=== PATIENT | female | born 1965 | race Caucasian/White ===

== ENCOUNTER 2016-10-10 11:07 | Emergency (ER) | payer BC ==
[2016-10-10] MEDS ORDERED: LIDOCAINE HCL 2% JELLY 1 APP/5 ML TUBE ONE (11:31)
--- NOTE | 2016-10-10 12:04 | CT REPORT ---
HISTORY: Status post fall with loss of consciousness COMPARISON: None. TECHNIQUE: Axial non-contrast images obtained from skull vertex through foramen magnum. Dose reduction technique was utilized. FINDINGS: There is a high parietal scalp contusion. There is no underlying calvarial fracture. Skull base appea rs normal. No large hematoma of the scalp seen. No intracranial hemorrhage, pathologic extra-axial fluid collection, midline shift or hydrocephalus s een. IMPRESSION: 1. No evidence of an acute cranial process. 2. High parietal scalp contusion without subjacent calvarial fracture. Final Electronic Signature: This report was electronically signed by Lai Riggins MD on 10/10/2016 12:02 PM. raquel /
[2016-10-10] MEDS ORDERED: ONDANSETRON ODT 8 MG TAB.RAPDIS PO ONE (13:39)
--- NOTE | 2016-10-10 14:47 | ER NURSING DOCUMENTATION ---
Nurse's Notes [facility] ([place], [place]) Name:Chayo Gonzalez Age:51 yrs Sex:Female :1965 Arrival Date:10/10/2016 Time:11:07 BedTrauma-A Private MD:No PCP, Identified Diagnosis:Head Contusion, Unspecified Part of Head;Abrasion;Back Contusion Presentation: 10/10 11:13 Acuity: MARGARET 2 lc 11:20 Mechanism of Injury: Horse accident. 11:24 Presenting complaint: Patient states: PT was horseback riding and her cell phone went rh off resulting in the horse kicked her off. PT had a witnessed LOC by who reports that she was knocked out for "about 30 seconds". Pt c/o headache, dizziness and has abrasions on her tailbone, left payton/calf and her nose. Transition of care: Other [facility]. Mechanism of Injury: The problem was sustained at [facility], resulted from BUCKED OFF A HORSE. 11:24 Method Of Arrival: Private Vehicle Triage Assessment: 11:27 General: Appears in no apparent distress, Behavior is cooperative. Pain: Complains of rh pain in face, left parietal area, right parietal area, coccyx, left calf, left payton and nose. EENT: Oral mucosa is moist. Neuro: Level of Consciousness is awake, alert, obeys commands, Oriented to person, place, time, event, Reports dizziness, headache. Cardiovascular: Capillary refill < 3 seconds Chest pain is denied. Respiratory: Airway is patent Respiratory effort is even, unlabored, Respiratory pattern is regular, symmetrical, Breath sounds are clear bilaterally. Denies shortness of breath. GI: Abdomen is non- distended Abd is soft and non tender X 4 quads. Denies diarrhea, nausea, vomiting. : No deficits noted. Derm: Skin is intact, is healthy with good turgor, Skin is pink, warm & dry. Reports. Musculoskeletal: Circulation, motion, and sensation intact Range of motion intact in all extremities. Injury Description: Abrasion sustained to thoracic area, coccyx, left calf, left payton and nose is dirty, was sustained 30-60 minutes ago. Historical: - Allergies: No known drug Allergies; - Home Meds: 1. fiber - PMHx: Asthma; Seasonal Allergies; - PSHx: ; - Tetanus: < 10 years. - Ebola Screening: : Patient negative for fever greater than or equal to 101.5 degrees Fahrenheit, and additional compatible Ebola Virus Disease symptoms. - Immunization history: Flu Vaccine < 1 year. - Social history: Smoking status: Patient states was never smoker of tobacco. Screenin:30 Infectious Disease Risk None. Abuse screen: Denies threats or abuse. Denies injuries rh from another. Nutritional screening: No deficits noted. Vital Signs: 11:10 BP 131 / 78 (auto/); lc 11:12 Pulse 89 MON; Resp 26; Pulse Ox 94% ; lc 11:12 Temp 97.6; Weight 74.39 kg; Height 5 ft. 5 in. (165.10 cm); Pain 6/10; lc 12:00 BP 134 / 85; Pulse 65; Resp 17; Pulse Ox 95% on R/A; Pain 4/10; rh 13:00 BP 118 / 59; Pulse 56; Resp 17; Pulse Ox 93% on R/A; rh 14:46 BP 142 / 71; Pulse 59; Resp 15; Pulse Ox 95% on R/A; Pain 4/10; rh 11:12 Body Mass Index 27.29 (74.39 kg, 165.10 cm) lc [place] Coma Score: 11:24 Eye Response: spontaneous(4). Verbal Response: oriented(5). Motor Response: obeys rh commands(6). Total: 15. Trauma Score (Adult): 11:30 Eye Response: spontaneous(1); Verbal Response: oriented(1); Motor Response: obeys rh commands(2); Systolic BP: > 89 mm Hg(4); Respiratory Rate: 10 to 29 per min(4); [place] Score: 15; Trauma Score: 12 11:50 Eye Response: spontaneous(1); Verbal Response: oriented(1); Motor Response: obeys rh commands(2); Systolic BP: > 89 mm Hg(4); Respiratory Rate: 10 to 29 per min(4); Rosa Isela Score: 15; Trauma Score: 12 12:20 Eye Response: spontaneous(1); Verbal Response: oriented(1); Motor Response: obeys rh commands(2); Systolic BP: > 89 mm Hg(4); Respiratory Rate: 10 to 29 per min(4); Rosa Isela Score: 15; Trauma Score: 12 13:00 Eye Response: spontaneous(1); Verbal Response: oriented(1); Motor Response: obeys commands(2); Systolic BP: > 89 mm Hg(4); Respiratory Rate: 10 to 29 per min(4); [place] Score: 15; Trauma Score: 12 ED Course: 11:08 Patient arrived in ED. ds 11:09 No PCP, Identified is Private Physician. ds 11:13 Mary Lou Sanz, RN is Primary Nurse. 11:13 Triage completed. 11:15 Notified ED Physician of patient's arrival and chief complaint. Dr. Samano notified. rh 11:20 Blas Samano MD is Attending Physician. 11:30 Valuables Remains with patient Patient has correct armband on for positive rh identification. Placed in gown. Bed in low position. Call light in reach. Side rails up X2. hospital monitor on. Pulse ox on. NIBP on. Warm blanket given. Pillow given. Family accompanied patient. 11:[address] dnn 12:00 Wound care to abrasion, located on back and thoracic area and nose and left leg and rh buttocks and left payton and left calf and coccyx was cleaned with soap and water, Irrigation Normal Saline dressed with bacitracin Kerlix, ABD pads, band aid, Patient tolerated well. 13:53 Diet: Patient given snack. Patient given water. Tolerated well. Assisted to bedside rh commode. 13:53 Road Test. rh Administered Medications: 01:30 Drug: Zofran 8 mg; Route: PO; lpr 13:53 Follow up: Response: Nausea is decreased 11:23 Drug: Lidocaine Ointment (2%) 1 application; Route: Topical; Infused Over: 20 mins; Site: affected area; 11:29 Drug: Dilaudid 1 mg; Route: IM; Site: left gluteus; lc 12:21 Follow up: Response: Pain is decreased 13:24 CANCELLED (Physician Discretion): Zofran 4 mg IVP once over 2 mins 13:24 CANCELLED (Physician Discretion): NS 0.9% 1000 ml IV at bolus once Outcome: 14:32 Discharge ordered by . 14:46 Discharged to home via wheelchair, with family. 14:46 Condition: improved 14:46 Discharge Assessment: Patient awake, alert and oriented x 3. No cognitive and/or functional deficits noted. Patient verbalized understanding of disposition instructions. 14:46 Discharge instructions given to patient, family, significant other, Instructed on discharge instructions, follow up and referral plans. Demonstrated understanding of instructions. 14:46 Patient left the ED. Signatures: Mary Lou Sanz RN RN lc Srot, Rita, Reg Reg Blas Rutherford MD MD jm Roberts, Leslie, RN RN lpr Norman, David dnn Hofsess, Rachel
--- NOTE | 2016-10-10 14:47 | ER PHYSICIAN DOCUMENTATION ---
Physician Documentation [facility] Name:Chayo Gonzalez Age:51 yrs Sex:Female :1965 Arrival Date:10/10/2016 Time:11:07 BedTrauma-A Private MD:No PCP, Identified ED Blas Borjas Disposition: 10/10/16 14:32 Discharged to Home/Self Care. Impression: Head Contusion, Unspecified Part of Head, Abrasion, Back Contusion. - Condition is Good. - Discharge Instructions: CONTUSION, Soft Tissue, Brain Concussion - CONCUSSION, No Wake Up. - Medical Reconciliation form form. - Follow up: Private Physician; When: As needed; Reason: Continuance of care. - Problem is new. - Symptoms have improved. HPI: 10/10 11:43 This 51 yrs old Female presents to ER via Private Vehicle with complaints of jm Head Injury With LOC-Adult. 11:43 The patient or guardian reports injury. The complaints affect the left parietal area. jm Context of injury: resulted from a fall, horse. Onset: The symptom(s)/episode began/occurred acutely, just prior to arrival. Associated signs and symptoms: Loss of consciousness: This patient experience a loss of consciousness, for 30 second(s). Severity of symptoms: in the emergency department the symptoms have improved. Intracranial bleed risk factors: This patient has no risk factors for intracranial bleed. The patient has not experienced similar symptoms in the past. The patient has not recently seen a physician. Pt's phone went off while riding a horse. The horse got spooked and bucked her off. She landed on her back, but her head snapped back and she lost LOC for 30 seconds according to her . Pt has a BEAN, nausea, and dizziness. . Historical: - Allergies: No known drug Allergies; - Home Meds: 1. fiber - PMHx: Asthma; Seasonal Allergies; - PSHx: ; - Tetanus: < 10 years. - Ebola Screening: : Patient negative for fever greater than or equal to 101.5 degrees Fahrenheit, and additional compatible Ebola Virus Disease symptoms. - Immunization history: Flu Vaccine < 1 year. - Social history: Smoking status: Patient states was never smoker of tobacco. ROS: 12:00 Constitutional: Negative for fatigue, fever. jm 12:00 Eyes: Negative for blurry vision, visual disturbance. 12:00 ENT: Negative for injury or acute deformity. 12:00 Neck: Negative for pain with movement, stiffness. 12:15 Cardiovascular: Negative for chest pain, palpitations. 12:15 Respiratory: Negative for cough, shortness of breath. 12:15 Abdomen/GI: Negative for abdominal pain, nausea, vomiting, diarrhea. 12:15 MS/extremity: Negative for acute changes, injury or acute deformity. 12:15 Skin: Positive for abrasion(s), of the coccyx. 12:15 Neuro: Positive for dizziness, headache, loss of consciousness, Negative for numbness, tingling. 12:15 All other systems are negative. Exam: 12:19 Constitutional: The patient appears alert, awake, comfortable. 12:19 Head/face: Noted is hematoma, that is mild, of the right parietal area. 12:19 Eyes: Pupils: equal, round, and reactive to light and accomodation, Extraocular movements: intact throughout. 12:19 ENT: Mouth: is normal, Voice: is normal. 12:19 Neck: C-spine: Thyroid: appears normal. 12:19 Cardiovascular: Rate: normal, Rhythm: regular. 12:19 Respiratory: Respirations: normal, Breath sounds: are normal. 12:19 Abdomen/GI: Bowel sounds: normal, Palpation: abdomen is soft and non-tender. 12:19 Back: pain, that is moderate, of the sacrum and left low back, vertebral tenderness, is not appreciated. 12:19 Musculoskeletal/extremity: Extremities: grossly normal except: noted in the left payton and left calf: contusion, ROM: intact in all extremities, Weight bearing: able to fully bear weight. 12:19 Skin: injury, abrasion(s), large abrasion noted, 10 cm(s), of the back, no rash present. 12:19 Neuro: Mentation: is normal, Memory: is normal, Cerebellar function: is grossly normal, Motor: strength is 5/5 in all extremities, Sensation: is normal, Gait: is steady. 12:19 Psych: Behavior/mood is pleasant, anxious, Affect is calm. Vital Signs: 11:10 BP 131 / 78 (auto/); lc 11:12 Pulse 89 MON; Resp 26; Pulse Ox 94% ; lc 11:12 Temp 97.6; Weight 74.39 kg; Height 5 ft. 5 in. (165.10 cm); Pain 6/10; lc 12:00 BP 134 / 85; Pulse 65; Resp 17; Pulse Ox 95% on R/A; Pain 4/10; rh 13:00 BP 118 / 59; Pulse 56; Resp 17; Pulse Ox 93% on R/A; rh 14:46 BP 142 / 71; Pulse 59; Resp 15; Pulse Ox 95% on R/A; Pain 4/10; rh 11:12 Body Mass Index 27.29 (74.39 kg, 165.10 cm) [place] Coma Score: 11:24 Eye Response: spontaneous(4). Verbal Response: oriented(5). Motor Response: obeys rh commands(6). Total: 15. Trauma Score (Adult): 11:30 Eye Response: spontaneous(1); Verbal Response: oriented(1); Motor Response: obeys rh commands(2); Systolic BP: > 89 mm Hg(4); Respiratory Rate: 10 to 29 per min(4); [place] Score: 15; Trauma Score: 12 11:50 Eye Response: spontaneous(1); Verbal Response: oriented(1); Motor Response: obeys rh commands(2); Systolic BP: > 89 mm Hg(4); Respiratory Rate: 10 to 29 per min(4); Rosa Isela Score: 15; Trauma Score: 12 12:20 Eye Response: spontaneous(1); Verbal Response: oriented(1); Motor Response: obeys rh commands(2); Systolic BP: > 89 mm Hg(4); Respiratory Rate: 10 to 29 per min(4); Rosa Isela Score: 15; Trauma Score: 12 13:00 Eye Response: spontaneous(1); Verbal Response: oriented(1); Motor Response: obeys rh commands(2); Systolic BP: > 89 mm Hg(4); Respiratory Rate: 10 to 29 per min(4); Rosa Isela Score: 15; Trauma Score: 12 MDM: 11:09 Patient medically screened. 12:24 Differential diagnosis: Contusion of Hematoma on Intracranial bleed- Concussion. Neurological re-evaluation: normal neurological exam including cranial nerves, orientation, mentation, motor and sensory exam, cerebellar testing, GCS normal, and normal gait. Data reviewed: vital signs, nurses notes, radiologic studies, and as a result, I will discharge patient. Counseling: I had a detailed discussion with the patient and/or guardian regarding: the historical points, exam findings, and any diagnostic results supporting the discharge/admit diagnosis, radiology results, the need for outpatient follow up, with the patient's primary care provider. 10/10 12:06 Order name: CAT SCAN; HEAD W/O CON [id number] EDMS 10/10 11:31 Order name: Wound Care; Complete Time: 11:31 rh 10/10 11:37 Order name: Cardiac Monitoring - Continuous; Complete Time: 11:37 rh 10/10 13:53 Order name: Urine Dip; Complete Time: 13:53 rh Dispensed Medications: 01:30 Drug: Zofran 8 mg; Route: PO; lpr 13:53 Follow up: Response: Nausea is decreased rh 11:23 Drug: Lidocaine Ointment (2%) 1 application; Route: Topical; Infused Over: 20 mins; Site: affected area; 11:29 Drug: Dilaudid 1 mg; Route: IM; Site: left gluteus; lc 12:21 Follow up: Response: Pain is decreased 13:24 CANCELLED (Physician Discretion): Zofran 4 mg IVP once over 2 mins 13:24 CANCELLED (Physician Discretion): NS 0.9% 1000 ml IV at bolus once Signatures: Mary Lou Sanz RN RN Blas Beckford MD MD jm Roberts, Leslie, RN RN formerly [facility] Dionna Patterson
== END 2016-10-10 14:47 | disposition home or self-care (01) ==
LOC: ER 11:07
DX: S00.03XA Contusion of scalp, initial encounter (principal); S30.0XXA Contusion of lower back and pelvis, initial encounter; S30.810A Abrasion of lower back and pelvis, initial encounter; S80.12XA Contusion of left lower leg, initial encounter; V80.010A Animal-rider injured by fall from or being thrown from horse in noncollision accident, initial encounter; Y92.838 Other recreation area as the place of occurrence of the external cause; Y93.52 Activity, horseback riding
CPT/HCPCS: 70450; 96372; 99285; J1170